=== PATIENT | female | born 1965 | race Caucasian/White ===

== ENCOUNTER 2018-12-20 11:08 | Emergency (ER) | payer MEDICARE ==
[~2018-12-20] VITALS: Ht 172.7 cm; Wt 130.9 kg
[2018-12-20 11:54] VITALS: Ht 172.7 cm; Wt 130.9 kg
[2018-12-20] MEDS ORDERED: METAPROTERENOL20 MG (11:56)
[2018-12-20] MEDS ORDERED: CYCLOBENZAPRINE10 MG PO (11:57)
[2018-12-20] MEDS ORDERED: KLONOPIN1 MG (11:57)
[2018-12-20] MEDS ORDERED: PERCOCET 10-321 EAC1 (11:57)
[2018-12-20] MEDS ORDERED: COZAAR100 MG PO (11:57)
[2018-12-20] MEDS ORDERED: BAYER CHEWABLE81 MG (11:58)
[2018-12-20] MEDS ORDERED: AMBIEN10 MG (11:58)
[2018-12-20] MEDS ORDERED: DICLOFENAC SODI50 MG PO (16:18)
[2018-12-20 16:56] VITALS: BP 120/90
== END 2018-12-20 16:58 | disposition home or self-care (01) ==
LOC: D.ER 11:08
DX: S63.91XA Sprain of unspecified part of right wrist and hand, initial encounter (principal); W18.30XA Fall on same level, unspecified, initial encounter; Y93.89 Activity, other specified; Y92.019 Unspecified place in single-family (private) house as the place of occurrence of the external cause

== ENCOUNTER → 2018-12-20 16:38 | Outpatient (CLI) | payer MEDICARE, MEDICAID ==
[2018-12-20 11:54] VITALS: BMI 43.8
[~2018-12-20 16:38] MED LIST: AMBIEN10 MG; BAYER CHEWABLE81 MG; COZAAR100 MG PO; CYCLOBENZAPRINE10 MG PO; DICLOFENAC SODI50 MG PO; KLONOPIN1 MG; METAPROTERENOL20 MG; PERCOCET 10-321 EAC1
== END | disposition home or self-care (01) ==
LOC: D.RAD 12-17 13:15
PROVIDERS: ATTEND Anesthesiology
DX: M54.2 Cervicalgia (principal)

== ENCOUNTER 2019-02-15 22:20 | Emergency (ER) | payer MEDICARE, MEDICAID ==
[~2019-02-15] VITALS: Ht 172.7 cm; Wt 129.1 kg
[2019-02-15 22:23] VITALS: Ht 172.7 cm; Wt 129.1 kg
[2019-02-15] MEDS ORDERED: PEPCID AC20 MG PO (22:35)
[2019-02-15] MEDS ORDERED: ROBAXIN500 MG (22:36)
[2019-02-15] MEDS ORDERED: MECLIZINE HCL25 MG (22:37)
[2019-02-15] MEDS ORDERED: TOPROL XL50 MG PO (22:37)
[2019-02-15] MEDS ORDERED: MAXZIDE 75/501 TAB (22:38)
[2019-02-15] MEDS ORDERED: ZITHROMAX250 MG PO (22:38)
[2019-02-15 22:59] LABS: BASOPHILS 0.2 % (0-2); EOSINOPHILS 1.4 % (0-7); HEMATOCRIT 46.4 % (36.0-48.0); HEMOGLOBIN 15.5 g/dL (12-16); IMMATURE GRANULOCYTES 0.2 % (0-5); LYMPHOCYTES 25.5 % (15-50); MCH 31.6 pg (26.0-34.0); MCHC 33.4 g/dL (31.0-37.0); MCV 94.5 fL (80.0-100.0); MEAN PLATELET VOLUME 9.7 fL (7.4-10.4); MONOCYTES 8.3 % (2-11); NEUTROPHILS 64.4 % (40-80); PLATELET COUNT 267 10x3/uL (130-400); RBC 4.91 10x6/uL (4.00-5.40); RDW 13.5 % (11.5-14.5); WBC 13.2 10x3/uL (4.8-10.8)
[2019-02-15 23:14] LABS: APTT 26.4 SECONDS (22.8-39.4); INR 0.96 (0.85-1.17); PROTIME 12.3 SECONDS (11.6-15.0)
[2019-02-15 23:27] LABS: ALBUMIN 3.6 g/dL (3.4-5.0); ALKALINE PHOSPHATASE 76 U/L (46-116); ALT (SGPT) 47 U/L (10-68); BILIRUBIN - TOTAL 0.42 mg/dL (0.2-1.3); CALC OSMOLALITY 272 mosm/kg (275-300); CALCIUM 8.9 mg/dL (8.5-10.1); CARBON DIOXIDE 22.4 mmol/L (21.0-32.0); CHLORIDE - SERUM 102 mmol/L (98-107); CREATININE - SERUM 1.7 mg/dL (0.6-1.3); GLUCOSE 119 mg/dL (74-106); POTASSIUM - SERUM 4.3 mmol/L (3.5-5.1); PROTEIN - SERUM 7.9 g/dL (6.4-8.2); SODIUM 135 mmol/L (136-145); UREA NITROGEN 18 mg/dL (7-18); eGFR NON AFRICAN AMERICAN 33 mL/min (90-120)
[2019-02-15 23:38] LABS: CKMB 0.6 U/L (0.0-3.6); CREATINE KINASE 72 UL (21-215); TROPONIN-I < 0.017 ng/mL (0.000-0.060)
[2019-02-16 00:04] LABS: APPEARANCE CLEAR (CLEAR); BILIRUBIN NEGATIVE (NEGATIVE); COLOR YELLOW (YELLOW); GLUCOSE NEGATIVE (NEGATIVE); KETONE NEGATIVE (NEGATIVE); NITRITE NEGATIVE (NEGATIVE); PROTEIN NEGATIVE (NEGATIVE); UROBILINOGEN NORMAL (NORMAL)
[2019-02-16 00:44] VITALS: BP 96/57
== END 2019-02-16 00:45 | disposition home or self-care (01) ==
LOC: D.ER 22:20
PROVIDERS: Emergency Medicine
DX: R00.0 Tachycardia, unspecified (principal); R51 Headache; R06.02 Shortness of breath

== ENCOUNTER 2019-06-05 22:04 | Inpatient (IN) | payer MEDICARE, MEDICAID ==
[~2019-06-05] VITALS: Ht 172.7 cm; Wt 137.0 kg
[~2019-06-05 22:04] MED LIST changes: -AMBIEN10 MG; +AMBIEN10 MG PO; -BAYER CHEWABLE81 MG; +BAYER CHEWABLE81 MG PO; -KLONOPIN1 MG; +KLONOPIN1 MG PO; +MAXZIDE 75/501 TAB; +MECLIZINE HCL25 MG; +PEPCID AC20 MG PO; +ROBAXIN500 MG; +TOPROL XL50 MG PO; +ZITHROMAX250 MG PO
[2019-06-05 23:04] LABS: HEMATOCRIT 38.1 % (36.0-48.0); HEMOGLOBIN 12.9 g/dL (12-16); MCH 30.9 pg (26.0-34.0); MCHC 33.9 g/dL (31.0-37.0); MCV 91.4 fL (80.0-100.0); MEAN PLATELET VOLUME 9.1 fL (7.4-10.4); PLATELET COUNT 268 10x3/uL (130-400); RBC 4.17 10x6/uL (4.00-5.40); RDW 13.2 % (11.5-14.5); WBC 7.4 10x3/uL (4.8-10.8)
[2019-06-05 23:14] LABS: ALBUMIN 3.2 g/dL (3.4-5.0); ALKALINE PHOSPHATASE 69 U/L (46-116); ALT (SGPT) 25 U/L (10-68); BILIRUBIN - TOTAL 0.33 mg/dL (0.2-1.3); CALC OSMOLALITY 282 mosm/kg (275-300); CALCIUM 8.9 mg/dL (8.5-10.1); CARBON DIOXIDE 24.5 mmol/L (21.0-32.0); CHLORIDE - SERUM 106 mmol/L (98-107); CREATININE - SERUM 1.3 mg/dL (0.6-1.3); GLUCOSE 121 mg/dL (74-106); PROTEIN - SERUM 7.2 g/dL (6.4-8.2); SODIUM 141 mmol/L (136-145); UREA NITROGEN 15 mg/dL (7-18); eGFR NON AFRICAN AMERICAN 45 mL/min (90-120)
[2019-06-05 23:17] LABS: TROPONIN-I < 0.017 ng/mL (0.000-0.060)
[2019-06-05 23:26] LABS: EOSINOPHILS 3 % (0-7); LYMPHOCYTES 47 % (15-50); MONOCYTES 5 % (2-11); NEUTROPHILS 45 % (40-80); PLATELET ESTIMATE NORMAL
--- NOTE | 2019-06-06 03:45 | NUR ---
ADMITTED TO ROOM FROM ER, ALERT AND ORIENTIATED, REPORTS COUGH AND INCREASED SHORTNESS OF BREATH WITH WHEEZING, NO WHEEZING NOTED AT THIS TIME, NON PRODUCTIVE COUGH NOTED, ORIENTIATED TO ROOM, CALL LIGHT IN REACH, SEE ASSESSMENT
[2019-06-06] MEDS ORDERED: PERCOCET 7.5/321 TAB PO (04:00)
--- NOTE | 2019-06-06 04:15 | NUR ---
Billy ELISE APN, NOTIFIED OF PT REQUEST FOR COUGH MEDICATION AND B/P MED FOR B/P 129/90 AND HAS NOT HAD MEDS LAST NIGHT, ORDERS RECIEVED
[2019-06-06 04:39] VITALS: BP 129/90; Ht 172.7 cm; Wt 137.0 kg
[2019-06-06 05:44] LABS: BASOPHILS 0.4 % (0-2); EOSINOPHILS 0.5 % (0-7); HEMATOCRIT 37.7 % (36.0-48.0); HEMOGLOBIN 12.7 g/dL (12-16); IMMATURE GRANULOCYTES 0.2 % (0-5); LYMPHOCYTES 34.2 % (15-50); MCH 31.1 pg (26.0-34.0); MCHC 33.7 g/dL (31.0-37.0); MCV 92.4 fL (80.0-100.0); MEAN PLATELET VOLUME 9.3 fL (7.4-10.4); MONOCYTES 3.1 % (2-11); NEUTROPHILS 61.6 % (40-80); PLATELET COUNT 243 10x3/uL (130-400); RBC 4.08 10x6/uL (4.00-5.40); RDW 13.2 % (11.5-14.5)
[2019-06-06 06:03] LABS: WBC 5.5 10x3/uL (4.8-10.8)
[2019-06-06 06:12] LABS: ALBUMIN 3.1 g/dL (3.4-5.0); ANION GAP 14.5 mmol/L (8-16); BILIRUBIN - TOTAL 0.2 mg/dL (0.2-1.3); CALCIUM 8.5 mg/dL (8.5-10.1); CARBON DIOXIDE 24.9 mmol/L (21.0-32.0); CREATININE - SERUM 1.2 mg/dL (0.6-1.3); POTASSIUM - SERUM 4.4 mmol/L (3.5-5.1); PROTEIN - SERUM 7.2 g/dL (6.4-8.2)
[2019-06-06 08:37] VITALS: BP 137/49
[2019-06-06 10:28] LABS: APTT 29.2 SECONDS (22.8-39.4); PROTIME 12.7 SECONDS (11.6-15.0)
[2019-06-06 11:27] LABS: CKMB 0.5 U/L (0.0-3.6); CREATINE KINASE 81 UL (21-215)
[2019-06-06 11:28] LABS: TROPONIN-I < 0.017 ng/mL (0.000-0.060)
[2019-06-06 12:25] VITALS: BP 172/79
[2019-06-06 15:26] VITALS: BP 162/81
--- NOTE | 2019-06-06 15:53 | NUR ---
I have reviewed this patient and I concur with the Shift Assessment completed by the Licensed Practical Nurse today this shift.
[2019-06-06 16:40] LABS: CKMB 0.8 U/L (0.0-3.6); CREATINE KINASE 90 UL (21-215)
[2019-06-06 16:43] LABS: TROPONIN-I < 0.017 ng/mL (0.000-0.060)
--- NOTE | 2019-06-06 19:30 | NUR ---
RECEIVED REPORT, WILL ASSUME CARE OF PT, DENIES ANY NEEDS AT THIS TIME, BED IS LOW, SRX2, CALL LIGHT IN ROOM, AT BEDSIDE
[2019-06-06 20:00] VITALS: BP 149/59
[2019-06-06 20:01] LABS: APPEARANCE CLEAR (CLEAR); COLOR YELLOW (YELLOW); SPECIFIC GRAVITY 1.015 (1.005-1.020)
[2019-06-06 20:02] LABS: BILIRUBIN NEGATIVE (NEGATIVE); GLUCOSE NEGATIVE (NEGATIVE); KETONE NEGATIVE (NEGATIVE); NITRITE NEGATIVE (NEGATIVE); PROTEIN TRACE mg/dL (NEGATIVE); UROBILINOGEN NORMAL (NORMAL)
[2019-06-06 22:27] LABS: CKMB 0.8 U/L (0.0-3.6); CREATINE KINASE 100 UL (21-215); TROPONIN-I < 0.017 ng/mL (0.000-0.060)
[2019-06-07] VITALS: BP 132/69
[2019-06-07 04:00] VITALS: BP 135/72
[2019-06-07 05:06] LABS: BASOPHILS 0 % (0-2); EOSINOPHILS 0 % (0-7); HEMATOCRIT 36.6 % (36.0-48.0); HEMOGLOBIN 12.4 g/dL (12-16); IMMATURE GRANULOCYTES 0.5 % (0-5); LYMPHOCYTES 13.9 % (15-50); MCH 31.2 pg (26.0-34.0); MCHC 33.9 g/dL (31.0-37.0); MCV 92.2 fL (80.0-100.0); MEAN PLATELET VOLUME 9.4 fL (7.4-10.4); MONOCYTES 1.9 % (2-11); NEUTROPHILS 83.7 % (40-80); PLATELET COUNT 267 10x3/uL (130-400); RBC 3.97 10x6/uL (4.00-5.40); RDW 13.3 % (11.5-14.5)
[2019-06-07 05:10] LABS: WBC 14.9 10x3/uL (4.8-10.8)
[2019-06-07 05:25] LABS: ALBUMIN 3.2 g/dL (3.4-5.0); ANION GAP 13.8 mmol/L (8-16); BILIRUBIN - TOTAL 0.23 mg/dL (0.2-1.3); CALCIUM 8.5 mg/dL (8.5-10.1); CARBON DIOXIDE 24.9 mmol/L (21.0-32.0); CREATININE - SERUM 1.1 mg/dL (0.6-1.3); MAGNESIUM - SERUM 1.9 mg/dL (1.8-2.4); POTASSIUM - SERUM 4.7 mmol/L (3.5-5.1); PROTEIN - SERUM 7.3 g/dL (6.4-8.2)
[2019-06-07 09:35] VITALS: BP 132/72
--- NOTE | 2019-06-07 09:50 | NUR ---
PATIENT IS AWAKE AND ALERT. SHE IS SITTING UP IN BED AT THIS TIME WITH AT BEDSIDE. SHE REPORTS THAT SHE HAS NOT SLEPT SINCE SUNDAY. HER SLEEP MEDICATION HAS BEEN ON HOLD BECAUSE OF HER COMPROMISED BREATHING.
[2019-06-07 13:37] VITALS: BP 126/71
--- NOTE | 2019-06-07 13:46 | NUR ---
MIRIAM IBARRA APN REGARDING PATIENT COMPLAINING OF NOT SLEEPING SINCE SUNDAY. SHE ORDERED A MEDICATION TO HELP.
--- NOTE | 2019-06-07 19:30 | NUR ---
RECEIVED REPORT, WILL ASSUME CARE OF PT, DENIES ANY NEEDS AT THIS TIME, WATCHING BALL GAME WITH , BED IS LOW, SRX2, CALL LIGHT IN REACH, WILL CONTINUE PLAN OF CARE
[2019-06-07 21:35] VITALS: BP 133/81
[2019-06-08] VITALS: BP 126/69
[2019-06-08 04:00] VITALS: BP 133/82
--- NOTE | 2019-06-08 04:55 | NUR ---
I have reviewed this patient and I concur with the Shift Assessment completed by the Licensed Practical Nurse today this shift.
[2019-06-08 05:14] LABS: BASOPHILS 0.1 % (0-2); EOSINOPHILS 0 % (0-7); HEMATOCRIT 36.8 % (36.0-48.0); IMMATURE GRANULOCYTES 0.6 % (0-5); LYMPHOCYTES 12.1 % (15-50); MCH 31.1 pg (26.0-34.0); MCHC 32.6 g/dL (31.0-37.0); MEAN PLATELET VOLUME 9.3 fL (7.4-10.4); MONOCYTES 3.8 % (2-11); NEUTROPHILS 83.4 % (40-80); PLATELET COUNT 246 10x3/uL (130-400); RBC 3.86 10x6/uL (4.00-5.40); RDW 13.9 % (11.5-14.5); WBC 17.9 10x3/uL (4.8-10.8)
[2019-06-08 05:15] LABS: MCV 95.3 fL (80.0-100.0)
[2019-06-08 05:38] LABS: ANION GAP 15.3 mmol/L (8-16); BILIRUBIN - TOTAL 0.15 mg/dL (0.2-1.3); CALCIUM 8.4 mg/dL (8.5-10.1); CREATININE - SERUM 1.1 mg/dL (0.6-1.3); MAGNESIUM - SERUM 2.1 mg/dL (1.8-2.4); POTASSIUM - SERUM 4.3 mmol/L (3.5-5.1); PROTEIN - SERUM 6.9 g/dL (6.4-8.2)
--- NOTE | 2019-06-08 07:10 | NUR ---
PT AWAKE AND ORIENTED, ON CL WHEN I WALKED IN. PT REQUESTS TO HAVE ONE MORE XRAY PRIOR TO BEING SENT HOME TODAY BECAUSE SHE FEELS THAT HER CHEST PAIN IS MOVING TO THE LEFT A LITTLE BIT. WILL SPEAK TO THE DR/MARKETING DATABASE CONSULTANT ABOUT IT. CLIN REACH, SRX2. NO FAMILY PRESENT.
[2019-06-08 09:05] VITALS: BP 132/78
--- NOTE | 2019-06-08 12:22 | NUR ---
I have reviewed this patient and I concur with the Shift Assessment completed by the Licensed Practical Nurse today this shift.
[2019-06-08 12:31] VITALS: BP 136/81
[2019-06-08 17:41] VITALS: BP 141/73
--- NOTE | 2019-06-08 17:52 | NUR ---
PT C/O GAS. NO OTHER COMPLAINTS/CONCERNS, ALL QUESTIONS ANSWERED. CL IN REACH, SRX2.
--- NOTE | 2019-06-08 19:08 | NUR ---
PT SITTING UP IN BED ALERT AND ORIENTED WITH 2L NC. PT RR EVEN AND UNLABORED. AT BEDSIDE. PT REFUSES TO WEAR TELEMETRY. NO S/S OF DISTRESS AT THIS TIME. PT DENIES ANY PAIN OR NEEDS AT THIS TIME. BED LOW CALL LIGHT WITHIN REACH. WILL CONTINUE TO MONITOR.
[2019-06-08 20:00] VITALS: BP 150/71
[2019-06-09 00:01] VITALS: BP 148/69
[2019-06-09 04:00] VITALS: BP 126/74
[2019-06-09 05:37] LABS: BASOPHILS 0 % (0-2); EOSINOPHILS 0 % (0-7); HEMATOCRIT 36.1 % (36.0-48.0); HEMOGLOBIN 11.7 g/dL (12-16); LYMPHOCYTES 21.4 % (15-50); MCH 30.8 pg (26.0-34.0); MCHC 32.4 g/dL (31.0-37.0); MEAN PLATELET VOLUME 9.3 fL (7.4-10.4); MONOCYTES 4.1 % (2-11); NEUTROPHILS 73.5 % (40-80); PLATELET COUNT 246 10x3/uL (130-400); RDW 13.7 % (11.5-14.5)
--- NOTE | 2019-06-09 05:47 | NUR ---
I have reviewed this patient and I concur with the Shift Assessment completed by the Licensed Practical Nurse today this shift.
[2019-06-09 06:00] LABS: WBC 10.5 10x3/uL (4.8-10.8)
[2019-06-09 06:10] LABS: ALBUMIN 2.8 g/dL (3.4-5.0); ANION GAP 11.4 mmol/L (8-16); BILIRUBIN - TOTAL 0.29 mg/dL (0.2-1.3); CALCIUM 7.8 mg/dL (8.5-10.1); CARBON DIOXIDE 26.8 mmol/L (21.0-32.0); MAGNESIUM - SERUM 2.1 mg/dL (1.8-2.4); POTASSIUM - SERUM 4.2 mmol/L (3.5-5.1); PROTEIN - SERUM 6.6 g/dL (6.4-8.2)
--- NOTE | 2019-06-09 08:22 | NUR ---
CALLED [facility] AND HAD APPT FOR PT RESCHEDULED FOR 06/24/19 AT 0900. MADE PT AWARE OF NEW APPT DATE.
--- NOTE | 2019-06-09 08:40 | NUR ---
AM MEDS GIVEN AT THIS TIME. PT DENIES ANY OTHER NEEDS AT THIS TIME. CALL LIGHT IN REACH, NAD NOTED, WILL CONTINUE TO MONITOR.
[2019-06-09 08:47] VITALS: BP 139/66
[2019-06-09 12:05] VITALS: BP 136/78
--- NOTE | 2019-06-09 13:55 | NUR ---
GAVE PERCOCET FOR PAIN LEVEL OF 7/10. PT DENIES ANY OTHER NEEDS AT THIS TIME. CALL LIGHT IN REACH, NAD NOTED, WILL CONTINUE TO MONITOR.
[2019-06-09] MEDS ORDERED: LEVOFLOXACIN500 MG PO (15:01)
[2019-06-09] MEDS ORDERED: PREDNISONE20 MG PO (15:02)
[2019-06-09] MEDS ORDERED: PROTONIX40 MG PO (15:03)
[2019-06-09 16:10] VITALS: BP 148/76
--- NOTE | 2019-06-09 16:55 | NUR ---
PAGED SAMANTHA ELISE, WAITING FX ARTIST BACK.
--- NOTE | 2019-06-09 17:16 | MORECARE ---
CASE MANAGEMENT DISCHARGE SUMMARY PATIENT: ARTUR VELAZCO UNIT: [id number] ADM DATE: 06/06/19 AGE: 53 : 65 SEX: F ROOM/BED: D.2103 AUTHOR: KAL ESTRADA PHYSICIAN: REFERRING PHYSICIAN: RODERICK BEARD MD DATE OF SERVICE: 06/09/19 Discharge Plan Patient Name: ARTUR VELAZCO Facility: [facility]:[place] : 1965 Planned Disposition: Home Anticipated Discharge Date: 06/09/19 Discharge Date: Expected LOS: 3 Initial Reviewer: [id number] Initial Review Date: 06/09/2019 Generated: 06/09/19 6:16 pm External Providers External Provider: Jr Guzmán Next Contact Date: 06/09/2019 Service Request Date: Service Type: Resolution: Reviewer: Comments: Coverage Notice Reviewer: AMEENA Sandoval Notice Issued Date-Time: 06/09/2019 16:30 Notice Type: IM Discharge Notice Notice Delivered To: Patient Relationship to Patient: Ticket Collector Name: Delivery Method: HAND - Hand Delivered Veronica Days: Prior Verbal Notification: Recipient Understood Notice: Yes Recipient Signature: Yes Med Rec Note Co-signed by Attending: Coverage Notice Comment: Reviewer: AMEENA Sandoval Notice Issued Date-Time: 06/09/2019 16:30 Notice Type: Patient Choice Letter Notice Delivered To: Patient Relationship to Patient: Ticket Collector Name: Delivery Method: HAND - Hand Delivered Veronica Days: Prior Verbal Notification: Recipient Understood Notice: Yes Recipient Signature: Yes Med Rec Note Co-signed by Attending: Coverage Notice Comment: ARTIS Patient Name: ARTUR VELAZCO Page [phone] at 1716 All edits/amendments must be made on the electronic document DICTATION DATE: 06/09/191715 UX ENGINEER: TRISTIN 06/09/191715 RPT#: [id number] DC DATE: STATUS: ADM IN [facility] [address] [facility] [place] [address] END OF REPORT
--- NOTE | 2019-06-09 17:23 | MORECARE ---
CASE MANAGEMENT DISCHARGE SUMMARY PATIENT: ARTUR VELAZCO UNIT: [id number] ADM DATE: 06/06/19 AGE: 53 : 65 SEX: F ROOM/BED: D.2103 AUTHOR: KAL ESTRADA PHYSICIAN: REFERRING PHYSICIAN: RODERICK BEARD MD DATE OF SERVICE: 06/09/19 Discharge Plan Patient Name: ARTUR VELAZCO Facility: [facility]:[place] : 1965 Planned Disposition: Home Anticipated Discharge Date: 06/09/19 Discharge Date: Expected LOS: 3 Initial Reviewer: [id number] Initial Review Date: 06/09/2019 Generated: 06/09/19 6:23 pm DCPIA - Discharge Planning Initial Assessment Updated by AMEENA: Antoine Sandoval on 06/09/19 5:16 pm * Is the patient Alert and Oriented? Yes * How many steps to enter\exit or inside your home? RAMP * PCP DR. KIRK HERNANDEZ, [facility] * Pharmacy [facility], [facility]. * Preadmission Environment Home with Family * ADLs Independent * Equipment CPAP Nebulizer Oxygen * Other Equipment HOME AND PORTABLE OXYGEN [facility] - MEDICAL EQUIPMENT PROVIDER * List name and contact numbers for known caregivers / representatives who currently or will assist patient after discharge: JENN VELAZCO, SPOUSE, * Verbal permission to speak to the caregivers and representatives has been obtained from the patient. N/A * Community resources currently utilized None * Please name any agencies selected above. NONE * Additional services required to return to the preadmission environment? No * Can the patient safely return to the preadmission environment? Yes * Has this patient been hospitalized within the prior 30 days at any hospital? No Coverage Notice Reviewer: [id number] Chetan Sandoval Notice Issued Date-Time: 06/09/2019 16:30 Notice Type: IM Discharge Notice Notice Delivered To: Patient Relationship to Patient: Trumpet Teacher Name: Delivery Method: HAND - Hand Delivered Veronica Days: Prior Verbal Notification: Recipient Understood Notice: Yes Recipient Signature: Yes Med Rec Note Co-signed by Attending: Coverage Notice Comment: Reviewer: [id number] Sandoval Notice Issued Date-Time: 06/09/2019 16:30 Notice Type: Patient Choice Letter Notice Delivered To: Patient Relationship to Patient: Trumpet Teacher Name: Delivery Method: HAND - Hand Delivered Veronica Days: Prior Verbal Notification: Recipient Understood Notice: Yes Recipient Signature: Yes Med Rec Note Co-signed by Attending: Coverage Notice Comment: ARTIS Jacobo DP export: 06/09/19 4:16 pm Patient Name: ARTUR VELAZCO Page [phone] at 1723 All edits/amendments must be made on the electronic document DICTATION DATE: 06/09/191722 WELDING MACHINE FEEDER: TRISTIN 06/09/191722 RPT#: [id number] DC DATE: STATUS: ADM IN [facility] [address] [place] [address] END OF REPORT
--- NOTE | 2019-06-09 17:32 | MORECARE ---
CASE MANAGEMENT DISCHARGE SUMMARY PATIENT: ARTUR VELAZCO UNIT: [id number] ADM DATE: 06/06/19 AGE: 53 : 65 SEX: F ROOM/BED: D.2103 AUTHOR: KAL ESTRADA PHYSICIAN: REFERRING PHYSICIAN: RODERICK BEARD MD DATE OF SERVICE: 06/09/19 Discharge Plan Patient Name: ARTUR VELAZCO Facility: [facility]:[place] : 1965 Planned Disposition: Home Anticipated Discharge Date: 06/09/19 Discharge Date: Expected LOS: 3 Initial Reviewer: [id number] Initial Review Date: 06/09/2019 Generated: 06/09/19 6:32 pm Comments DCP- Discharge Planning Updated by [id number]: Antoine Sandoval on 06/09/19 4:[address] Patient Name: ARTUR VELAZCO Admission Status: ER Accout number: [id number] Admission Date: 06-06-2019 : 1965 Admission Diagnosis: Attending: RODERICK JONES Current LOS: 3 Anticipated DC Date: 06-09-2019 Planned Disposition: Home Primary Insurance: [employer] MEDICARE ADV PLANNED EXTERNAL PROVIDER: [facility] Discharge Planning Comments: CM RECEIVED ORDER FOR DISCHARGE, MET WITH PT IN ROOM TO DISCUSS DISCHARGE PLANNING AND NEEDS. PT REPORTS LIVING AT HOME INDEPENDENTLY WITH HER SPOUSE. PT HAS CPAP, HOME AND PORTABLE OXYGEN AND NEBULIZER FROM [facility]. PT REPORTS THE NEBULIZER IF NOT FROM [facility], SHE GOT IF FROM HER FATHER AND THE MOUTHPIECE IF BROKEN. PT HAS NO OUTSIDE SERVICES ASSISTING IN THE HOME. CM DISCUSSED AVAILABILITY OF HOME HEALTH, REHAB SERVICES AND MEDICAL EQUIPMENT. PT DENIES DISCHARGE NEEDS OTHER THAN A NEBULIZER, CHOICE SIGNED FOR [facility]. PT REPORTS HER SPOUSE WILL PICK HER UP FOR DISCHARGE HOME. IMPORTANT MESSAGE FROM MEDICARE PROVIDED AND EXPLAINED. CM SPOKE TO DR. MUJICA WHO PROVIDED ORDER FOR NEBULIZER AND DISCHARGE MEDICATION LIST; CM PROVIDED PULOMONARY DISCHARGE MEDICATION LIST TO SLOT TECHNICIAN NURSE. CM CALLED [facility], , SPOKE TO MACY AND PROVIDED REFERRAL INFORMATION. CM FAXED REFERRAL TO [facility], . MACY ADVISED THEY WILL DELIVER NEBULIZER TO PT'S HOME WHEN APPROVED BY INSURANCE AND ARRIVES AT THE STORE. PT NOTIFIED AND IN AGREEMENT WITH DISCHARGE PLAN. PT WILL GO TO [facility] TO GET ANOTHER MOUTHPIECE FOR THE NEBULIZER SHE HAS BEEN USING AT HOME TO USE UNTIL HER NEW ONE ARRIVES. Auxiliary Powerplant Operator: Antoine Sandoval DCPIA - Discharge Planning Initial Assessment Updated by [id number]: Antoine Sandoval on 06/09/19 5:16 pm * Is the patient Alert and Oriented? Yes * How many steps to enter\exit or inside your home? RAMP * PCP DR. KIRK HERNANDEZ, [facility] * Pharmacy [facility], [facility]. * Preadmission Environment Home with Family * ADLs Independent * Equipment CPAP Nebulizer Oxygen * Other Equipment HOME AND PORTABLE OXYGEN [facility] - MEDICAL EQUIPMENT PROVIDER * List name and contact numbers for known caregivers / representatives who currently or will assist patient after discharge: JENN VELAZCO, SPOUSE, * Verbal permission to speak to the caregivers and representatives has been obtained from the patient. N/A * Community resources currently utilized None * Please name any agencies selected above. NONE * Additional services required to return to the preadmission environment? No * Can the patient safely return to the preadmission environment? Yes * Has this patient been hospitalized within the prior 30 days at any hospital? No Coverage Notice Reviewer: [id number] Sandoval Notice Issued Date-Time: 06/09/2019 16:30 Notice Type: IM Discharge Notice Notice Delivered To: Patient Relationship to Patient: Human Service Specialist Name: Delivery Method: HAND - Hand Delivered Veronica Days: Prior Verbal Notification: Recipient Understood Notice: Yes Recipient Signature: Yes Med Rec Note Co-signed by Attending: Coverage Notice Comment: Reviewer: [id number] - Antoine Sandoval Notice Issued Date-Time: 06/09/2019 16:30 Notice Type: Patient Choice Letter Notice Delivered To: Patient Relationship to Patient: Human Service Specialist Name: Delivery Method: HAND - Hand Delivered Veronica Days: Prior Verbal Notification: Recipient Understood Notice: Yes Recipient Signature: Yes Med Rec Note Co-signed by Attending: Coverage Notice Comment: ARTIS Last DP export: 06/09/19 4:23 pm Patient Name: ARTUR VELAZCO Page [phone] at 1732 All edits/amendments must be made on the electronic document DICTATION DATE: 06/09/191731 LAW FIRM ADMINISTRATOR: TRISTIN 06/09/191731 RPT#: [id number] DC DATE: STATUS: ADM IN [facility] [address] [place] [address] END OF REPORT
[2019-06-09] MEDS ORDERED: MUCINEX DM ER1 EAC1 PO (17:48)
[2019-06-09] MEDS ORDERED: SINGULAIR10 MG PO (17:48)
[2019-06-09] MEDS ORDERED: FAMOTIDINE10 MG PO (17:49)
[2019-06-09] MEDS ORDERED: PULMICORT0.5 MG/21 INH (17:49)
[2019-06-09] MEDS ORDERED: TESSALON PERLE100 MG PO (17:49)
[2019-06-09] MEDS ORDERED: ATROVENT 0.02%2.5 ML UPD (17:50)
[2019-06-09] MEDS ORDERED: ALBUTEROL SULF8.5 GM INH (17:51)
--- NOTE | 2019-06-10 07:41 | MORECARE ---
CASE MANAGEMENT DISCHARGE SUMMARY PATIENT: ARTUR VELAZCO UNIT: [id number] ADM DATE: 06/06/19 AGE: 53 : 65 SEX: F ROOM/BED: D.2103 AUTHOR: KAL ESTRADA PHYSICIAN: REFERRING PHYSICIAN: RODERICK BEARD MD DATE OF SERVICE: 06/10/19 Discharge Plan Patient Name: ARTUR VELAZCO Facility: [facility]:[place] : 1965 Planned Disposition: Home Anticipated Discharge Date: 06/09/19 Discharge Date: 06/09/2019 Expected LOS: 3 Initial Reviewer: [email or web address] Initial Review Date: 06/09/2019 Generated: 06/10/19 8:41 am Comments DCP- Discharge Planning Updated by [email or web address]: Antoine Sandoval on 06/09/19 4:[address] Patient Name: ARTUR VELAZCO Admission Status: ER Accout number: [id number] Admission Date: 06-06-2019 : 1965 Admission Diagnosis: Attending: RODERICK JONES Current LOS: 3 Anticipated DC Date: 06-09-2019 Planned Disposition: Home Primary Insurance: [employer] MEDICARE ADV PLANNED EXTERNAL PROVIDER: [facility] Discharge Planning Comments: CM RECEIVED ORDER FOR DISCHARGE, MET WITH PT IN ROOM TO DISCUSS DISCHARGE PLANNING AND NEEDS. PT REPORTS LIVING AT HOME INDEPENDENTLY WITH HER SPOUSE. PT HAS CPAP, HOME AND PORTABLE OXYGEN AND NEBULIZER FROM [facility]. PT REPORTS THE NEBULIZER IF NOT FROM [facility], SHE GOT IF FROM HER FATHER AND THE MOUTHPIECE IF BROKEN. PT HAS NO OUTSIDE SERVICES ASSISTING IN THE HOME. CM DISCUSSED AVAILABILITY OF HOME HEALTH, REHAB SERVICES AND MEDICAL EQUIPMENT. PT DENIES DISCHARGE NEEDS OTHER THAN A NEBULIZER, CHOICE SIGNED FOR [facility]. PT REPORTS HER SPOUSE WILL PICK HER UP FOR DISCHARGE HOME. IMPORTANT MESSAGE FROM MEDICARE PROVIDED AND EXPLAINED. CM SPOKE TO DR. MUJICA WHO PROVIDED ORDER FOR NEBULIZER AND DISCHARGE MEDICATION LIST; CM PROVIDED PULOMONARY DISCHARGE MEDICATION LIST TO BLENDING TANK TENDER HELPER NURSE. CM CALLED [facility], , SPOKE TO MACY AND PROVIDED REFERRAL INFORMATION. CM FAXED REFERRAL TO [facility], . [facility]Y ADVISED THEY WILL DELIVER NEBULIZER TO PT'S HOME WHEN APPROVED BY INSURANCE AND ARRIVES AT THE STORE. PT NOTIFIED AND IN AGREEMENT WITH DISCHARGE PLAN. PT WILL GO TO [facility] TO GET ANOTHER MOUTHPIECE FOR THE NEBULIZER SHE HAS BEEN USING AT HOME TO USE UNTIL HER NEW ONE ARRIVES. Runner Out: Antoine Sandoval DCPIA - Discharge Planning Initial Assessment Updated by [email or web address]: Antoine Sandoval on 06/09/19 5:16 pm * Is the patient Alert and Oriented? Yes * How many steps to enter\exit or inside your home? RAMP * PCP DR. KIRK HERNANDEZ, [facility] * Pharm[facility]. * Preadmission Environment Home with Family * ADLs Independent * Equipment CPAP Nebulizer Oxygen * Other Equipment HOME AND PORTABLE OXYGEN [facility] - MEDICAL EQUIPMENT PROVIDER * List name and contact numbers for known caregivers / representatives who currently or will assist patient after discharge: JENN VELAZCO, SPOUSE, * Verbal permission to speak to the caregivers and representatives has been obtained from the patient. N/A * Community resources currently utilized None * Please name any agencies selected above. NONE * Additional services required to return to the preadmission environment? No * Can the patient safely return to the preadmission environment? Yes * Has this patient been hospitalized within the prior 30 days at any hospital? No Coverage Notice Reviewer: [id number] Chetan Sandoval Notice Issued Date-Time: 06/09/2019 16:30 Notice Type: IM Discharge Notice Notice Delivered To: Patient Relationship to Patient: Hvac Refrigeration Technician Name: Delivery Method: HAND - Hand Delivered Veronica Days: Prior Verbal Notification: Recipient Understood Notice: Yes Recipient Signature: Yes Med Rec Note Co-signed by Attending: Coverage Notice Comment: Reviewer: [id number] Chetan Sandoval Notice Issued Date-Time: 06/09/2019 16:30 Notice Type: Patient Choice Letter Notice Delivered To: Patient Relationship to Patient: Hvac Refrigeration Technician Name: Delivery Method: HAND - Hand Delivered Veronica Days: Prior Verbal Notification: Recipient Understood Notice: Yes Recipient Signature: Yes Med Rec Note Co-signed by Attending: Coverage Notice Comment: [facility] Last DP export: 06/09/19 4:32 pm Patient Name: ARTUR VELAZCO Page [phone] at 0741 All edits/amendments must be made on the electronic document DICTATION DATE: 06/10/19740 HOT KNIFE FOXING CUTTER: TRISTIN 06/10/19740 RPT#: [id number] DC DATE:06/09/19 STATUS: DIS IN [facility] [address] [place] [id number] END OF REPORT
--- NOTE | 2019-06-11 14:32 | EC ---
PATIENT:ARTUR VELAZCO DATE OF SERVICE: 06/06/19 SEX: F MEDICAL RECORD: [id number] DATE OF : 65 LOCATION:D.M2 D.210 AGE OF PATIENT: 53 ADMISSION DATE: 06/06/19 REFERRING PHYSICIAN: INTERPRETING PHYSICIAN: CASTRO CARR MD ECHOCARDIOGRAM REPORT ECHO CHARGES 4 ECHO COMPLETE Date: 06/07/19 CLINICAL DIAGNOSIS: CHECKING FOR SHUNT ECHOCARDIOGRAPHIC MEASUREMENTS (adult normal given) AC root (d.<3.7cm) 2.6 cm LV Septum d (<1.2 cm> 1.2 cm Valve Excursion 1.4 cm LV Septum (systole) 1.4 cm Left Atria (s.<4.0cm> 3.2 cm LVPW d(<1.2cm) 1.2 cm RV (d.<2.3cm) 3.0 cm LVPW (sytole) 1.3 cm LV diastole(<5.6CM) 5.2 cm MV E-F(>70mm/sec) cm LV systole 4.0 cm LVOT Diameter 2.0 cm MV exc.(>10mm) cm Est.ejection fraction (50-75%) % DOPPLER: LVIT cm/sec A 77 cm/sec E 70 cm/sec LA cm/sec RVSP 42.8 mmHg LVOT 114 cm/sec AOP1/2T m/s Asc. Ao 148 cm/sec RVOT 63 cm/sec RA cm/sec PA 85 cm/sec AV Gradient Peak 8.8 mmHg AV Mean 5.4 mmHg AV Area 2.4 cm MV Gradient Peak 4.1 mmHg MV Mean 2.3 mmHg MV Area cm COMMENTS: Maintenance Of Way Clerk: Franci CHURCHILL [employer] Goods Drill Operator: 1 Dr. Carr TAPE# PACS Pericardial Effusion N DATE OF SERVICE: 06/07/2019 PROCEDURE: Echocardiogram with bubble study. FINDINGS: 1. Left ventricular chamber size is within normal limits. Left ventricular systolic function is normal. Overall ejection fraction estimated at 60%. 2. Left atrium, right atrium, and right ventricle chamber sizes are within normal limits. 3. Valvular structures have normal structure and motion. ECHOCARDIOGRAM REPORT [id number] ARTUR VELAZCO 4. Doppler interrogation reveals trace tricuspid regurgitation, no other valvular insufficiency or stenosis. 5. No evidence of pericardial effusion or left ventricular thrombus. 6. Bubble study was performed. There is no evidence of [id number] or brrma-[id number] shunt. TRANSINT:[id number] Voice Confirmation ID: [id number] DOCUMENT ID: [id number] CASTRO CARR MD at 1432 CC: [id number] DICTATION DATE: 06/08/19 1147 BITUMEN PLANT OPERATOR: 06/08/19 1341 DIS IN 06/09/19 [place] [id number] [place] [id number]
== END 2019-06-09 19:57 | disposition home or self-care (01) | DRG 177 ==
LOC: D.ER 22:04 → D.M2 06-06 02:47
PROVIDERS: Family Medicine; ADMIT Family Medicine Adult Medicine; ATTEND Family Medicine Adult Medicine
DX: J69.0 Pneumonitis due to inhalation of food and vomit (principal); J96.21 Acute and chronic respiratory failure with hypoxia; A41.9 Sepsis, unspecified organism; I47.1 Supraventricular tachycardia; Z68.42 Body mass index [BMI] 45.0-49.9, adult; D86.0 Sarcoidosis of lung; G47.33 Obstructive sleep apnea (adult) (pediatric); J45.909 Unspecified asthma, uncomplicated; K21.9 Gastro-esophageal reflux disease without esophagitis; I10 Essential (primary) hypertension; E66.01 Morbid (severe) obesity due to excess calories; F12.90 Cannabis use, unspecified, uncomplicated

== ENCOUNTER 2019-06-20 01:06 | Emergency (ER) | payer MEDICARE, MEDICAID ==
[~2019-06-20] VITALS: Ht 172.7 cm; Wt 131.4 kg
[~2019-06-20 01:06] MED LIST changes: +ALBUTEROL SULF8.5 GM INH; +ATROVENT 0.02%2.5 ML UPD; +FAMOTIDINE10 MG PO; +LEVOFLOXACIN500 MG PO; +MUCINEX DM ER1 EAC1 PO; +PERCOCET 7.5/321 TAB PO; +PREDNISONE20 MG PO; +PROTONIX40 MG PO; +PULMICORT0.5 MG/21 INH; +SINGULAIR10 MG PO; +TESSALON PERLE100 MG PO
[2019-06-20 01:09] VITALS: Ht 172.7 cm; Wt 131.4 kg
[2019-06-20 01:24] LABS: BASOPHILS 0.2 % (0-2); EOSINOPHILS 0.9 % (0-7); HEMOGLOBIN 15.4 g/dL (12-16); IMMATURE GRANULOCYTES 0.3 % (0-5); LYMPHOCYTES 37.1 % (15-50); MCV 91.3 fL (80.0-100.0); MEAN PLATELET VOLUME 9.3 fL (7.4-10.4); MONOCYTES 7.1 % (2-11); NEUTROPHILS 54.4 % (40-80); PLATELET COUNT 265 10x3/uL (130-400); RBC 4.82 10x6/uL (4.00-5.40); RDW 13.4 % (11.5-14.5); WBC 13.5 10x3/uL (4.8-10.8)
[2019-06-20 01:37] LABS: APTT 23.2 SECONDS (22.8-39.4); INR 0.88 (0.85-1.17); PROTIME 11.4 SECONDS (11.6-15.0)
[2019-06-20 01:43] LABS: ALBUMIN 3.4 g/dL (3.4-5.0); ALKALINE PHOSPHATASE 72 U/L (46-116); ALT (SGPT) 35 U/L (10-68); BILIRUBIN - TOTAL 0.57 mg/dL (0.2-1.3); CALC OSMOLALITY 279 mosm/kg (275-300); CARBON DIOXIDE 23.3 mmol/L (21.0-32.0); CHLORIDE - SERUM 100 mmol/L (98-107); CREATININE - SERUM 1.3 mg/dL (0.6-1.3); GLUCOSE 132 mg/dL (74-106); POTASSIUM - SERUM 3.8 mmol/L (3.5-5.1); PROTEIN - SERUM 7.1 g/dL (6.4-8.2); SODIUM 137 mmol/L (136-145); UREA NITROGEN 24 mg/dL (7-18); eGFR NON AFRICAN AMERICAN 45 mL/min (90-120)
[2019-06-20 01:58] LABS: CREATINE KINASE 40 UL (21-215); MAGNESIUM - SERUM 1.8 mg/dL (1.8-2.4)
[2019-06-20 02:03] LABS: TROPONIN-I < 0.017 ng/mL (0.000-0.060)
[2019-06-20 04:18] VITALS: BP 110/62
== END 2019-06-20 04:18 | disposition home or self-care (01) ==
LOC: D.ER 01:06
PROVIDERS: Family Medicine
DX: R07.9 Chest pain, unspecified (principal); J96.10 Chronic respiratory failure, unspecified whether with hypoxia or hypercapnia; R06.00 Dyspnea, unspecified; D86.0 Sarcoidosis of lung

== ENCOUNTER 2019-12-01 16:07 | Emergency (ER) | payer MEDICARE ==
[~2019-12-01] VITALS: Ht 172.7 cm; Wt 128.6 kg
[2019-12-01 16:15] VITALS: Ht 172.7 cm; Wt 128.6 kg
[2019-12-01 16:37] LABS: BASOPHILS 0.3 % (0-2); EOSINOPHILS 0.4 % (0-7); HEMATOCRIT 42.2 % (36.0-48.0); HEMOGLOBIN 14.7 g/dL (12-16); IMMATURE GRANULOCYTES 0.3 % (0-5); LYMPHOCYTES 46.1 % (15-50); MCH 31.4 pg (26.0-34.0); MCHC 34.8 g/dL (31.0-37.0); MCV 90.2 fL (80.0-100.0); MEAN PLATELET VOLUME 9.5 fL (7.4-10.4); MONOCYTES 6.4 % (2-11); NEUTROPHILS 46.5 % (40-80); PLATELET COUNT 263 10x3/uL (130-400); RBC 4.68 10x6/uL (4.00-5.40); RDW 12.8 % (11.5-14.5)
[2019-12-01 16:49] LABS: APTT 26.5 SECONDS (22.8-39.4); INR 0.91 (0.85-1.17); PROTIME 12.2 SECONDS (11.6-15.0)
[2019-12-01 16:57] LABS: CALC OSMOLALITY 274 mosm/kg (275-300); CALCIUM 9.7 mg/dL (8.5-10.1); CARBON DIOXIDE 25.8 mmol/L (21.0-32.0); CHLORIDE - SERUM 102 mmol/L (98-107); CREATININE - SERUM 1.2 mg/dL (0.6-1.3); GLUCOSE 113 mg/dL (74-106); SODIUM 136 mmol/L (136-145); UREA NITROGEN 17 mg/dL (7-18); eGFR NON AFRICAN AMERICAN 50 mL/min (90-120)
[2019-12-01 17:11] LABS: ALBUMIN 3.7 g/dL (3.4-5.0); ALKALINE PHOSPHATASE 86 U/L (30-120); ALT (SGPT) 30 U/L (10-68); AMYLASE - SERUM 56 U/L (25-115); BILIRUBIN - TOTAL 0.36 mg/dL (0.2-1.3); CREATINE KINASE 46 UL (21-215); LIPASE 66 U/L (73-393); MAGNESIUM - SERUM 1.9 mg/dL (1.8-2.4); PROTEIN - SERUM 7.7 g/dL (6.4-8.2)
[2019-12-01 17:20] LABS: TROPONIN-I < 0.017 ng/mL (0.000-0.060)
[2019-12-01 18:19] LABS: BILIRUBIN NEGATIVE (NEGATIVE); GLUCOSE NEGATIVE (NEGATIVE); KETONE NEGATIVE (NEGATIVE); NITRITE NEGATIVE (NEGATIVE); UROBILINOGEN NORMAL (NORMAL)
[2019-12-01] MEDS ORDERED: [UNRECOGNIZED DRUG - CODE] PO (21:04)
[2019-12-01] MEDS ORDERED: ZOFRAN ODT4 MG/UDTAB PO (21:04)
[2019-12-01] MEDS ORDERED: CARAFATE1 G PO (21:04)
[2019-12-01] MEDS ORDERED: OMEPRAZOLE20 M1 PO (21:04)
[2019-12-01 21:35] VITALS: BP 135/87
== END 2019-12-01 21:35 | disposition home or self-care (01) ==
LOC: D.ER 16:07
PROVIDERS: Family Medicine
DX: K29.70 Gastritis, unspecified, without bleeding (principal); R10.13 Epigastric pain; R11.0 Nausea; K59.00 Constipation, unspecified